=== PATIENT | male | born 1985 | race Caucasian/White ===

== ENCOUNTER 2022-06-08 14:49 | Outpatient (CLI) | payer BC, SELFPAY ==
[2022-06-08 21:36] LABS: Chloride* 104 mmol/L (96-114); Sodium* 141 mmol/L (135-149)
[2022-06-08 21:39] LABS: Creatinine* 0.8 mg/dL (0.5-1.5); Estimated Glomerular Filt Rate 118 ml/min
[2022-06-08 21:40] LABS: Blood Urea Nitrogen* 18 mg/dL (5-24); Carbon Dioxide* 29 mmol/L (20-32); Glucose* 86 mg/dL (60-115)
[2022-06-08 21:41] LABS: Calcium* 9.6 mg/dL (8.4-10.6)
[2022-06-08 21:43] LABS: C Reactive Protein* 0.6 mg/dL (0.5-1.0)
[2022-06-10 21:38] LABS: Rheumatoid Factor <10 IU/mL (0-14)
== END 2022-06-08 14:50 | disposition home or self-care (01) ==
PROVIDERS: PCP Family Medicine; Visit Provider Emergency Medicine
DX: M25.571 Pain in right ankle and joints of right foot (principal)
CPT/HCPCS: 80048; 84550; 86140; 86200; 86431

== ENCOUNTER 2023-06-16 14:49 | Outpatient (CLI) | payer BC, SELFPAY ==
--- NOTE | 2023-06-16 15:00 | CRLHL7_ITS ---
For Patients: As a result of the Century Cures Act, medical imaging exams and procedure reports are released immediately into your electronic medical record. You may view this report before your referring provider. If you have questions, please contact your health care provider. Indication: Pulmonary nodule Technique: Noncontrast CT chest Please note that all CT scans at this facility use dose modulation, iterative reconstruction, and/or weight-based dosing when appropriate to reduce radiation dose to as low as reasonably achievable. Comparison: 04/11/2014 Findings: Normal visualized thyroid. No adenopathy. No hiatal hernia. Upper abdomen unremarkable. Calcified granuloma in the right lower lobe. Additional calcified granuloma left lower lobe. No infiltrate, edema, effusion or pneumothorax. No fracture. Impression: Benign calcified nodules in both lower lobes. No suspicious findings. Please note that all CT scans at this facility use dose modulation, iterative reconstruction, and/or weight-based dosing when appropriate to reduce radiation dose to as low as reasonably achievable. Dictated by Shayan Hernandez MD @ 06/18/2023 2:32:35 PM (Electronically Signed)
== END 2023-06-16 14:50 | disposition home or self-care (01) ==
LOC: CT 14:49
PROVIDERS: PCP Family Medicine; Visit Provider Family Medicine
DX: R91.1 Solitary pulmonary nodule (principal)
CPT/HCPCS: 43239; 45380; 45385; 71250

== ENCOUNTER 2024-05-30 11:21 | Outpatient (CLI) | payer BC, SELFPAY | END 2024-05-30 11:22 | disposition home or self-care (01) | LOC: NFLDREF 06-02 09:58 | PROVIDERS: PCP Family Medicine; Referring Provider Family Medicine; Visit Provider Family Medicine | DX: I10 Essential (primary) hypertension (principal); E78.00 Pure hypercholesterolemia, unspecified; J30.2 Other seasonal allergic rhinitis; F41.8 Other specified anxiety disorders; Z13.1 Encounter for screening for diabetes mellitus; Z13.6 Encounter for screening for cardiovascular disorders | CPT/HCPCS: 80053; 80061 ==